=== PATIENT | male | born 1965 | race Caucasian/White ===

== ENCOUNTER 2025-05-09 09:37 | Inpatient (IN) | payer OTHER ==
[~2025-05-09] VITALS: Ht 180.3 cm; Wt 96.6 kg
[2025-05-09] VITALS (16 sets, daily range): BP systolic 155–185; BP diastolic 81–126
[2025-05-09] MEDS ORDERED: Labetalol HCL 5 MG/ML 4ML Injection (Single Dose) IV ONE (10:25)
[2025-05-09] MEDS ORDERED: TAMS.4ER PO (10:44)
[2025-05-09 11:20] LABS: BASOPHILS ABSOLUTE AUTO 0.03 K/mm3 (0.00-0.23); BASOPHILS PERCENT AUTO 0 % (0-2); EOSINOPHILS ABSOLUTE AUTO 0.05 K/mm3 (0.00-0.68); EOSINOPHILS PERCENT AUTO 0 % (0-6); Hematocrit 36.5 % (37.0-53.0); Hemoglobin 12.1 g/dL (13.5-17.5); IMMATURE GRAN ABSOLUTE AUTO 0.05 K/mm3 (0.00-0.10); IMMATURE GRAN PERCENT AUTO 0 % (0-1); LYMPHOCYTES ABSOLUTE AUTO 0.65 K/mm3 (0.84-5.20); LYMPHOCYTES PERCENT AUTO 5 % (21-46); MONOCYTES ABSOLUTE AUTO 0.52 K/mm3 (0.16-1.47); MONOCYTES PERCENT AUTO 4 % (4-13); Mean Corpuscular HGB Conc 33.2 g/dL (31.5-36.5); Mean Corpuscular Volume 88 fL (80-100); NEUTROPHILS ABSOLUTE AUTO 11.67 K/mm3 (1.96-9.15); NEUTROPHILS PERCENT AUTO 90 % (41-73); NRBC ABSOLUTE 0.00 K/mm3 (0.00-0.02); NRBC Auto 0.0 /100 WBC (0.0-0.2); Platelet Count 212 K/mm3 (150-400); RDW Coefficient Variation 14.6 % (11.7-14.2); RDW Standard Deviation 46.1 fL (35.1-46.3)
[2025-05-09 12:08] LABS: Alanine Aminotransfer (ALT/SGP 56.0 U/L (12-78); Albumin, Blood 3.4 g/dL (3.4-5.0); Albumin/Globulin Ratio 0.9 (0.8-1.8); Anion Gap 11.0 mmol/L (3-11); Aspartate Aminotrans (AST/SGOT 39.0 U/L (12-37); Bilirubin, Total 0.8 mg/dL (0.1-1.0); Blood Urea Nitrogen 62.0 mg/dL (8-24); CO2, Blood 24.0 mmol/L (21-32); Calcium, Blood 8.9 mg/dL (8.5-10.1); Chloride, Blood 106.0 mmol/L (98-108); Creatinine, Blood 6.04 mg/dL (0.60-1.20); Globulin, Blood 3.8 g/dL (2.2-4.0); Glucose, Blood 88.0 mg/dL (70-99); Magnesium, Blood 2.6 mg/dL (1.6-2.4); Potassium, Blood 4.2 mmol/L (3.5-5.5); Sodium, Blood 137.0 mmol/L (136-145); Total Protein, Blood 7.2 g/dL (6.4-8.2)
[2025-05-09 12:26] LABS: pH Blood Venous 7.35 (7.34-7.37)
[2025-05-09] MEDS ORDERED: NICARDIPINE HCL PO ONE ×2 (12:30→12:55)
[2025-05-09] MEDS ORDERED: FLU VACC TS2025-26(6MOS UP)/PF 45 MCG/0.5 ML SYRINGE IM ONE (12:50)
[2025-05-09] MEDS ORDERED: Ondansetron HCl 2 MG / ML 2ML Vial IV PRN (12:50)
[2025-05-09 13:27] LABS: Source, Urine Clean Catch
[2025-05-09 13:31] LABS: Bilirubin, Urine Neg (Neg); Color, Urine Yellow (P-Yellow); Glucose Qualitative, Urine 1+ (Neg); Ketones, Urine Neg (Neg); Leukocyte Esterase, Urine Neg (Neg); Protein, Urine 4+ (Neg); Specific Gravity, Urine 1.015 (1.003-1.022); Urobilinogen, Urine NORM (Normal)
[2025-05-09 13:58] LABS: White Blood Cells, Urine 0-2 /hpf (0-5)
[2025-05-09] MEDS ORDERED: Heparin Sodium,Porcine 5,000 UNIT/0.5 ML SDV SC SCH (14:00)
[2025-05-09] MEDS ORDERED: NiCARdipine HCL 50 MG in NS 250 ML IV SCH (14:05)
[2025-05-09 14:18] LABS: U Amphetamine Screen DETECTED; U Barbiturate Screen Not Detected; U Benzodiazapine Screen Not Detected; U Buprenorphine Screen Not Detected; U Cannabinoids Screen DETECTED; U Cocaine Screen Not Detected; U Methadone Screen Not Detected; U Methamphetamine Screen DETECTED; U Opiates Screen Not Detected; U Oxycodone Screen Not Detected; U Phencyclidine Screen Not Detected
[2025-05-09] MEDS ORDERED: CefTRIAXone Sodium 1,000 MG in NS 100 ML IV SCH (16:00)
[2025-05-09 16:31] LABS: Albumin, Blood 3.3 g/dL (3.4-5.0); Anion Gap 10 mmol/L (3-11); Blood Urea Nitrogen 67 mg/dL (8-24); CO2, Blood 24 mmol/L (21-32); Calcium, Blood 8.7 mg/dL (8.5-10.1); Chloride, Blood 105 mmol/L (98-108); Creatinine, Blood 6.37 mg/dL (0.60-1.20); Glucose, Blood 105 mg/dL (70-99); Phosphorus, Blood 5.1 mg/dL (2.5-4.9); Potassium, Blood 4.1 mmol/L (3.5-5.5); Sodium, Blood 135 mmol/L (136-145)
[2025-05-09 16:47] LABS: EOS, Urine 0.0 % (0.0-1.0); Eosinophils-Raw #,Urine 0
--- NOTE | 2025-05-09 18:22 | NUR ---
SUMMARY PT ADMITTED TO ICU 2 AT 1615 FROM ER. PT IS A/O X4. NOT ON CPAP ON ARRIVAL BUT HAD BEEN WEARING IT IN ER. RT NOTIFIED AND BROUGHT CPAP IN ROOM. PT IS APNEIC WHEN SLEEPING. ON NICARDIPINE GTT ON ARRIVAL SEE FLOWSHEET. LASIX GIVEN PER DR. BRASWELL, DR. GHOSH CONSULTED BY DR. BRASWELL. NO SIGN OF DISTRESS.
--- NOTE | 2025-05-09 19:34 | NUR ---
ASSUMPTION OF CARE: ASSUMED CARE AT START OF SHIFT (1899). REPORT RECEIVED FROM DAY SHIFT RN. PT IS DOING WELL AND RESTING IN BED. PT IS ALERT AND FOLOWING COMMANDS. PT DENIES ANY PAIN, CP, OR SOB AT THIS TIME. ON NICARDIPINE GTT PER EMR ORDERS. LUNG SOUNDS ARE COARSE AND WHEEZY THROUGHOUT. PT IS ON RA WITH SPO2 >94% AND USES CPAP WHEN SLEEPING. SINUS RYTHM WITH SBP: 140-160'S MAP >65 HR: 80'S. IV: PERIPHERAL IN RAC AND R FOREARM. PT IS ABLE TO USE BEDSIDE URINAL. LINES AND CORDS PLACED OUT OF REACH. CALL LIGHT PLACED WITHIN REACH.
[2025-05-09] MEDS ORDERED: Lactobacil 2-S.Thermo-Bifido 1 1 Cap PO SCH (21:00)
[2025-05-10] VITALS (52 sets, daily range): BP systolic 99–195; BP diastolic 52–112
[2025-05-10 03:35] LABS: BASOPHILS ABSOLUTE AUTO 0.04 K/mm3 (0.00-0.23); BASOPHILS PERCENT AUTO 0 % (0-2); EOSINOPHILS ABSOLUTE AUTO 0.15 K/mm3 (0.00-0.68); EOSINOPHILS PERCENT AUTO 2 % (0-6); Hematocrit 33.2 % (37.0-53.0); Hemoglobin 11.1 g/dL (13.5-17.5); IMMATURE GRAN ABSOLUTE AUTO 0.04 K/mm3 (0.00-0.10); IMMATURE GRAN PERCENT AUTO 0 % (0-1); LYMPHOCYTES ABSOLUTE AUTO 0.67 K/mm3 (0.84-5.20); LYMPHOCYTES PERCENT AUTO 7 % (21-46); MONOCYTES ABSOLUTE AUTO 0.61 K/mm3 (0.16-1.47); MONOCYTES PERCENT AUTO 7 % (4-13); Mean Corpuscular HGB Conc 33.4 g/dL (31.5-36.5); Mean Corpuscular Volume 88 fL (80-100); NEUTROPHILS ABSOLUTE AUTO 7.82 K/mm3 (1.96-9.15); NEUTROPHILS PERCENT AUTO 84 % (41-73); NRBC ABSOLUTE 0.00 K/mm3 (0.00-0.02); NRBC Auto 0.0 /100 WBC (0.0-0.2); Platelet Count 190 K/mm3 (150-400); RDW Coefficient Variation 14.5 % (11.7-14.2); RDW Standard Deviation 46.1 fL (35.1-46.3)
[2025-05-10 04:05] LABS: Alanine Aminotransfer (ALT/SGP 49.0 U/L (12-78); Albumin, Blood 3.1 g/dL (3.4-5.0); Albumin/Globulin Ratio 0.9 (0.8-1.8); Anion Gap 12.0 mmol/L (3-11); Aspartate Aminotrans (AST/SGOT 29.0 U/L (12-37); Bilirubin, Total 0.9 mg/dL (0.1-1.0); Blood Urea Nitrogen 76.0 mg/dL (8-24); CO2, Blood 23.0 mmol/L (21-32); Calcium, Blood 8.5 mg/dL (8.5-10.1); Chloride, Blood 105.0 mmol/L (98-108); Creatinine, Blood 6.57 mg/dL (0.60-1.20); Globulin, Blood 3.6 g/dL (2.2-4.0); Glucose, Blood 98.0 mg/dL (70-99); Phosphorus, Blood 5.1 mg/dL (2.5-4.9); Potassium, Blood 3.8 mmol/L (3.5-5.5); Sodium, Blood 136.0 mmol/L (136-145); Total Protein, Blood 6.7 g/dL (6.4-8.2)
--- NOTE | 2025-05-10 05:50 | NUR ---
SHIFT SUMMARY: PT IS DOING WELL AND RESTING IN BED. NO ACUTE CHANGES THROUGHOUT THE SHIFT. PT WAS PLACED ON BIPAP WHILE SLEEPING. PT WAS ABLE TO SLEEP MOST OF THE NIGHT. VITAL SIGNS REMAIN STABLE. PT REMAINS ON NICARDIPINE GTT PER EMR ORDERS. LINES AND CORDS PLACED OUT OF REACH. CALL LIGHT PLACED WITHIN REACH.
[2025-05-10] MEDS ORDERED: Polyethylene Glycol 3350 17 gm PO SCH (09:00)
[2025-05-10] MEDS ORDERED: NIFEdipine 60 MG TabCR PO SCH (09:00)
[2025-05-10] MEDS ORDERED: Magnesium Hydroxide Conc 10 ML UDC PO PRN (11:10)
--- NOTE | 2025-05-10 11:24 | NUR ---
PT C/O BURNING PAIN IN LOWER ABD. GAVE ZOFRAN WITHOUT RELIEF. CALLED DR. BRASWELL TO NOTIFY. BLADDER SCAN 70ML. NO CHANGES SEEN ON MONITOR. DENIES CP OR SOB. STOOD PT AT BEDSIDE AND PT STATES IT SEEMS TO BE SUBSIDING A LITTLE BIT. ATIVAN GIVEN PER PT REQUEST AND HE WANTS TO TRY TO REST. PT STATES HIS BOWELS HAVE BEEN BACKED UP FOR AWHILE. BT'S PRESENT. MIRALAX AND SENNA GIVEN THIS AM.
--- NOTE | 2025-05-10 15:45 | NUR ---
PT MORE ANXIOUS THIS AFTERNOON AND WOKE SLIGHTLY CONFUSED. OOB TO CHAIR WITH WEAK GAIT. REORIENTS AFTER A FEW MINUTES. LEGS ARE MORE EDEMATOUS WELL HANDS THIS AFTERNOON. PT SOB AND INCREASED WOB. PT STATES HE IS STILL HAVING BURNING PAIN IN LOWER ABD. LS COARSE. HAS NOT BEEN VOIDING TODAY. DID EKG THAT HAS CHANGED SINCE ADMIT EKG. DENIES CP. CALLED DR. BRASWELL TO REPORT SYMPTOMS AND CAME TO THE BEDSIDE. LABS DRAWN. DR. BRASWELL SPOKE WITH DR. GHOSH, NO NEW ORDERS. PT BACK TO BED AND ON BIPAP. WOB IMPROVED SINCE BIPAP.
[2025-05-10 16:15] LABS: Anion Gap 18.0 mmol/L (3-11); Blood Urea Nitrogen 79.0 mg/dL (8-24); CO2, Blood 20.0 mmol/L (21-32); Calcium, Blood 8.4 mg/dL (8.5-10.1); Chloride, Blood 101.0 mmol/L (98-108); Creatinine, Blood 7.59 mg/dL (0.60-1.20); Glucose, Blood 174.0 mg/dL (70-99); Potassium, Blood 3.6 mmol/L (3.5-5.5); Sodium, Blood 135.0 mmol/L (136-145)
--- NOTE | 2025-05-10 16:44 | NUR ---
REPORTED CREATININE RESULTS TO DR. GHOSH, NO NEW ORDERS.
--- NOTE | 2025-05-10 17:11 | NUR ---
DR. GHOSH AT BEDSIDE PLAN FOR DIALYSIS CATH TOMORROW.
[2025-05-10 17:29] LABS: pH Blood Venous 7.39 (7.34-7.37)
[2025-05-10 17:55] LABS: Prothrombin Time Results 12.1 Sec (9.7-11.5)
--- NOTE | 2025-05-10 18:30 | NUR ---
PT RESTING ON BIPAP NOW, NO SIGN OF DISTRESS AT THE MOMENT. CALLED DR. GHOSH ABOUT LACTIC ACID, NEW ORDERS FOR VANCO DOSE.
[2025-05-11] VITALS (70 sets, daily range): BP systolic 128–220; BP diastolic 62–208
[2025-05-11] MEDS ORDERED: HydrALAZINE HCl 20 MG / ML 1ML Vial IV PRN (00:35)
[2025-05-11] MEDS ORDERED: HydrALAZINE HCl 20 MG / ML 1ML Vial IV ONE (02:00)
[2025-05-11] MEDS ORDERED: Isosorbide Mononitrate 30 MG TABCR PO ONE (02:05)
[2025-05-11] MEDS ORDERED: NiCARdipine HCL 50 MG in NS 250 ML IV SCH (03:45)
[2025-05-11 04:10] LABS: BASOPHILS ABSOLUTE AUTO 0.04 K/mm3 (0.00-0.23); BASOPHILS PERCENT AUTO 1 % (0-2); EOSINOPHILS ABSOLUTE AUTO 0.12 K/mm3 (0.00-0.68); EOSINOPHILS PERCENT AUTO 2 % (0-6); Hematocrit 30.8 % (37.0-53.0); Hemoglobin 9.8 g/dL (13.5-17.5); IMMATURE GRAN ABSOLUTE AUTO 0.03 K/mm3 (0.00-0.10); IMMATURE GRAN PERCENT AUTO 0 % (0-1); LYMPHOCYTES ABSOLUTE AUTO 0.72 K/mm3 (0.84-5.20); LYMPHOCYTES PERCENT AUTO 9 % (21-46); MONOCYTES ABSOLUTE AUTO 0.44 K/mm3 (0.16-1.47); MONOCYTES PERCENT AUTO 6 % (4-13); Mean Corpuscular HGB Conc 31.8 g/dL (31.5-36.5); Mean Corpuscular Volume 90 fL (80-100); NEUTROPHILS ABSOLUTE AUTO 6.47 K/mm3 (1.96-9.15); NEUTROPHILS PERCENT AUTO 83 % (41-73); NRBC ABSOLUTE 0.00 K/mm3 (0.00-0.02); NRBC Auto 0.0 /100 WBC (0.0-0.2); Platelet Count 170 K/mm3 (150-400); RDW Coefficient Variation 14.6 % (11.7-14.2); RDW Standard Deviation 47.8 fL (35.1-46.3)
[2025-05-11 04:25] LABS: Magnesium, Blood 2.4 mg/dL (1.6-2.4)
[2025-05-11 04:26] LABS: Albumin, Blood 2.8 g/dL (3.4-5.0); Anion Gap 13 mmol/L (3-11); Blood Urea Nitrogen 82 mg/dL (8-24); CO2, Blood 23 mmol/L (21-32); Calcium, Blood 8.3 mg/dL (8.5-10.1); Chloride, Blood 103 mmol/L (98-108); Creatinine, Blood 7.89 mg/dL (0.60-1.20); Glucose, Blood 120 mg/dL (70-99); Phosphorus, Blood 6.6 mg/dL (2.5-4.9); Potassium, Blood 3.6 mmol/L (3.5-5.5); Sodium, Blood 135 mmol/L (136-145)
--- NOTE | 2025-05-11 06:06 | NUR ---
SHIFT SUMMARY: PT IS DOING WELL AND RESTING IN BED. PT REMIANED ON BIPAP THROUGHOUT THE NIGHT AND SPO2 >95%. PT BECAME HYPERTENSIVE THE NIGHT PROGRESSED. DR. CRUZ WAS NOTIFIED, PT WAS GIVEN HYDRALAZINE PER EMR ORDERS BUT THE SBP REMAINED >180. NICARDIPINE GTT WAS STARTED PER EMR ORDERS. IV: PERIPHERAL LAC AND R FORERARM. PT IS ABLE TO STAND AND USE BEDSIDE URINAL. LINES AND CORDS PLACED OUT OF REACH. CALL LIGHT PLACED WITHIN REACH AND PT WILL PRESS CALL BUTTON WHEN THEY NEED ASSISTANCE.
--- NOTE | 2025-05-11 08:30 | NUR ---
ASSUMPTION OF CARE ASSUMED CARE OF PT AT START OF SHIFT, APPROX 0700. PT RESTING IN BED WITH NICARDIPENE INFUSING IN LAC PER MAR -SEE FLOWSHEEET. PT ALERT AND ABLE TO FOLLOW DIRECTIONS. VSS AT THIS TIME, PT ON BIPAP 16/450 21% FI02, SPO2 >90% LUNGS COARSE THROUGHOUT WITH NONPRODUCTIVE, WET COUGH. DENIES CP AND SOB. PT REQUESTED TO REMOVE BIPAP AT START OF SHIFT AND SATS REMAIN >90% ON RA. BP STABLE WITH SYSTOLIC IN THE 130S-140S. PLAN FOR PLACEMENT OF TRIALYSIS CATH THIS AM WITH DR. ARROYO. PT DENIES UNMET NEEDS AT THIS TIME, CALL LIGHT WITHIN REACH.
[2025-05-11] MEDS ORDERED: LORazepam 2 MG/ML 1ML Injection ONE (09:34)
[2025-05-11] MEDS ORDERED: FentaNYL Citrate 50 MCG/ML 2 ML Injection ONE (09:34)
[2025-05-11] MEDS ORDERED: FentaNYL Citrate 50 MCG/ML 2 ML Injection IV ONE (09:35)
[2025-05-11] MEDS ORDERED: LORazepam 2 MG/ML 1ML Injection IV SCH (09:40)
--- NOTE | 2025-05-11 09:46 | NUR ---
IN WITH PATIENT, PROCEDURE FOR TRIALASYS CATHETER PLACEMENT. EDUCATION AND CONSENT DONE. IV FENTANYL AND LORAZEPAM PER ORDERS OF . PT CHATTING WITH .
--- NOTE | 2025-05-11 18:26 | NUR ---
SHIFT SUMMARY PT REMAINS ALERT AND FOLLOWING DIRECTIONS. HR SINUS WITH RATE IN 80S, BP STABLE WITH SYSTOLIC IN THE 160S-170S. NICARDIPENE DRIP REMAINS ON STANDBY AND INITIATED PO HYDRALAZINE PER SEP -SEE FLOWSHEET. PT WAS OFF BIPAP FOR MOST OF THIS SHIFT, WAS PLACED BACK ON FOLLOWING TRIALYSIS CATH PLACEMENT FOR A SHORT PERIOD AND IS CURRENTLY ON RA WITH SATS >90%. PT UNDERWENT DIALYSIS AT BEDSIDE WITH 2L OFF FOLLOWING CATH PLACEMENT. DENIES CP OR SOB. NO BM THIS SHIFT, PROVIDED LAXATIVES PER SEP AND ABLE TO GET UP TO USE TOILET IN ROOM WITH STANDBY ASSIST. DENIES UNMENT NEEDS AT THIS TIME, CALL LIGHT WITHIN REACH.
--- NOTE | 2025-05-11 18:45 | NUR ---
PT REQUEST FOR TYLENOL PT ENDORSES HEADACHE AND SORENESS IN NECK WHERE TRIALYSIS CATH WAS PLACED, REQUESTING TYLENOL. ATTEMPTED CALL TO DR. BRASWELL AND RECEIVED VOICEMAIL, ATTEMPTED CALL TO DR. ALEXANDER ON WELDING SYSTEMS AND EQUIPMENT REPAIRER. WILL LET ONCOMING NURSE KNOW OF THE REQUEST WELL.
--- NOTE | 2025-05-11 21:09 | NUR ---
ASSUMPTION OF CARE: ASSUMED CARE AT START OF SHIFT (1899). REPORT RECEIVED FROM DAY SHIFT RN. PT IS DOING WELL AND RESTING IN BED. PT IS ALERT AND FOLLOWING COMMANDS. PT STATES THAT THEY ARE HAVE 6/10 R SIDE NECK PAIN FROM TRIALYSIS CATHETER INSERTION SITE, BUT NO SP OR SOB AT THIS TIME. NICARDIPINE GTT HAS BEEN ON STANDBY SINCE AFTERNOON. LUNG SOUNDS ARE EQUAL BUT COARSE THROUGHOUT, ON RA WITH SPO2 >95%. SINUS RYTHM WITH SBP: 160'S MAP >65 HR: 90'S. IV: PERIPHERAL IV IN L AND R FOREARM, TRIALYSIS CATH IN RIJ. PT IS ABLE TO STAND AND USE BEDSIDE URINAL VIA 1-PERSON ASSIST. LINES AND CORDS PLACED OUT OF REACH. CALL LIGHT PLACED WITHIN REACH.
[2025-05-12] VITALS (95 sets, daily range): BP systolic 133–216; BP diastolic 70–130
[2025-05-12 03:43] LABS: BASOPHILS ABSOLUTE AUTO 0.03 K/mm3 (0.00-0.23); BASOPHILS PERCENT AUTO 0 % (0-2); EOSINOPHILS ABSOLUTE AUTO 0.17 K/mm3 (0.00-0.68); EOSINOPHILS PERCENT AUTO 2 % (0-6); Hematocrit 31.6 % (37.0-53.0); Hemoglobin 10.0 g/dL (13.5-17.5); IMMATURE GRAN ABSOLUTE AUTO 0.06 K/mm3 (0.00-0.10); IMMATURE GRAN PERCENT AUTO 1 % (0-1); LYMPHOCYTES ABSOLUTE AUTO 0.72 K/mm3 (0.84-5.20); LYMPHOCYTES PERCENT AUTO 10 % (21-46); MONOCYTES ABSOLUTE AUTO 0.53 K/mm3 (0.16-1.47); MONOCYTES PERCENT AUTO 7 % (4-13); Mean Corpuscular HGB Conc 31.6 g/dL (31.5-36.5); Mean Corpuscular Volume 91 fL (80-100); NEUTROPHILS ABSOLUTE AUTO 5.98 K/mm3 (1.96-9.15); NEUTROPHILS PERCENT AUTO 80 % (41-73); NRBC ABSOLUTE 0.00 K/mm3 (0.00-0.02); NRBC Auto 0.0 /100 WBC (0.0-0.2); Platelet Count 169 K/mm3 (150-400); RDW Coefficient Variation 14.8 % (11.7-14.2); RDW Standard Deviation 48.1 fL (35.1-46.3)
[2025-05-12 04:00] LABS: Albumin, Blood 2.9 g/dL (3.4-5.0); Anion Gap 11 mmol/L (3-11); Blood Urea Nitrogen 63 mg/dL (8-24); CO2, Blood 28 mmol/L (21-32); Calcium, Blood 8.9 mg/dL (8.5-10.1); Chloride, Blood 100 mmol/L (98-108); Creatinine, Blood 6.96 mg/dL (0.60-1.20); Glucose, Blood 90 mg/dL (70-99); Magnesium, Blood 2.1 mg/dL (1.6-2.4); Phosphorus, Blood 4.2 mg/dL (2.5-4.9); Potassium, Blood 3.9 mmol/L (3.5-5.5); Sodium, Blood 135 mmol/L (136-145); Total Iron Binding Capacity 297 ug/dL (250-450)
--- NOTE | 2025-05-12 06:04 | NUR ---
SHIFT SUMMARY: PT IS DOING WELL AND RESTING IN BED. PT WAS ABLE TO SLEEP A COUPLE HOURS DUING THE NIGHT. PT WAS PUT ON BIPAP: 16/450/21% WHILE SLEEPING. SPO2 >95%. PT BECAME MORE HYPERTENSIVE THE NIGHT PROGRESSED. SBP: 160-200'S. PT WAS GIVEN MEDICATION AND NICARDIPINE GTT WAS RESTARTED PER EMR ORDES. IV: PERIPHERAL IV IN LAC AND R FOREARM, TRIALYSIS CATHETER IN RIJ. PT IS ABLE TO STAND AND USE TOILET VIA 1-PERSON ASSIST. LINES, CORDS, AND TUBES PLACED OUT OF REACH. CALL LIGHT PLACE WITHIN REACH. PT WILL PRESS CALL BUTTON WHEN THE NEED ASSISTANCE.
--- NOTE | 2025-05-12 11:24 | NUR ---
AM NOTE PT ASLEEP IN BED AT TIME OF BEDSIDE REPORT W/ NOC RN. PT A/OX4, ABLE TO MOVE ALL EXTREMITIES SPONTANEOUSLY, AND MAKE NEEDS KNOWN. NSR ON MONITOR, CAP REFILL<3 SEC, +2 EDEMA NOTED ON BUE/BLE. SBPS 180'S DESPITE ORAL MEDS PER SEP OVERNIGHT, NICARDIPINE ON 10MG/HR AT START IF SHIFT. DR. ROE ADVISED TO KEEP SBP'S <180 W/ NICARDIPINE GTT. NICARDIPINE TITRATED DOWN TO OFF W/ ORAL MEDS PER SEP, SBP MAINTAINED >120 FOR DIALYSIS REQUIREMENTS. PT ON RA WHILE AWAKE, SATURATING >95%, BREATHS EVEN/UNLABORED, LUNGS SOUNDS DIM T/O CRISTINA. ABD FIRM AND NONTENDER TO PALPATION, BOWEL SOUNDS ACTIVE. PT CONTINENT OF BOWEL/BLADDER. SKIN INTACT W/O BREAKDOWN. PT ABLE TO AMBULATE W/ STANDBY ASSIST FOR LINES/CORDS. PT HAD EXTENSIVE CONVERSATION W/ DR. BRASWELL REGARDING PROGNOSIS AND TREATMENT MOVING FORWARD. PT EXPRESSED CONCERN REAGRDING IF CARE PLAN WAS APPROPRIATE, BUT IS AGREEABLE TO PLAN. ACCESS: TOÑITO TRIALYSIS, LFA PIV, RAC PIV
[2025-05-12] MEDS ORDERED: NiCARdipine HCL 25 MG/10 ML (2.5MG/ML) IV PRN (12:15)
[2025-05-12] MEDS ORDERED: Sod Ferric Gluc Complx/Sucrose 125 MG in NS 100 ML IV SCH (18:00)
--- NOTE | 2025-05-12 18:11 | NUR ---
PM NOTE PT ASSESSMENT UNCHANGED FROM AM NOTE. PT HAD 3 HOURS OF HD COMPLETED W/ 4 LITERS OF FLUID REMOVED. BP'S CONTROLLED W/ SCHEDULED AND PRN ORAL MEDS. NICARDIPINE ON STANDBY IN ROOM. PT AGREEABLE TO TREATMENT PLAN OF DIALYIS, BUT FEELS OVERWHELMED. HE IS COMFORTED W/ FURTHER CONVERSATION AND PLANNING. VITAL SIGNS STABLE AND BEDSIDE REPORT PERFORMED W/ NOC RN.
--- NOTE | 2025-05-12 19:32 | NUR ---
ASSUMPTION OF CARE: ASSUMED CARE AT START OF SHIFT (1899). REPORT RECEVIED FROM DAY SHIFT RN. PT IS DOING WELL, SITTING UP IN CHAIR AND VISITING WITH FAMILY. PT IS ALERT AND FOLLOWING COMMANDS. PT DENIES ANY PAIN, CP, OR SOB AT THIS TIME. LUNG SOUNDS EQUAL WITH EXPIRATORY WHEEZES THROUGHOUT AND DIMINISHED IN BASES, ON RA WITH SPO2 >95%. PT USES BIPAP AT NIGHT WHEN SLEEPING. PT IS HYPERTENSIVE WITH SBP >160'S MAP >65, NICARDIPINE GTT PER EMR ORDERS, HR: 70'S. IV: PERIPHERAL LAC AND R FOREARM, TRIALYSIS CATHETER IN RIJ. PT IS ABLE TO STAND AND USE TOILET VIA 1-PERSON ASSIST. LINES AND CORDS PLACED OUT OF REACH. CALL LIGHT PLACED WITHIN REACH.
[2025-05-13] VITALS (52 sets, daily range): BP systolic 111–187; BP diastolic 75–118
[2025-05-13] MEDS ORDERED: LORazepam 2 MG/ML 1ML Injection IV ONE (01:20)
[2025-05-13 03:33] LABS: BASOPHILS ABSOLUTE AUTO 0.03 K/mm3 (0.00-0.23); BASOPHILS PERCENT AUTO 1 % (0-2); EOSINOPHILS ABSOLUTE AUTO 0.14 K/mm3 (0.00-0.68); EOSINOPHILS PERCENT AUTO 2 % (0-6); Hematocrit 27.9 % (37.0-53.0); Hemoglobin 9.1 g/dL (13.5-17.5); IMMATURE GRAN ABSOLUTE AUTO 0.02 K/mm3 (0.00-0.10); IMMATURE GRAN PERCENT AUTO 0 % (0-1); LYMPHOCYTES ABSOLUTE AUTO 0.59 K/mm3 (0.84-5.20); LYMPHOCYTES PERCENT AUTO 10 % (21-46); MONOCYTES ABSOLUTE AUTO 0.56 K/mm3 (0.16-1.47); MONOCYTES PERCENT AUTO 9 % (4-13); Mean Corpuscular HGB Conc 32.6 g/dL (31.5-36.5); Mean Corpuscular Volume 89 fL (80-100); NEUTROPHILS ABSOLUTE AUTO 4.82 K/mm3 (1.96-9.15); NEUTROPHILS PERCENT AUTO 78 % (41-73); NRBC ABSOLUTE 0.00 K/mm3 (0.00-0.02); NRBC Auto 0.0 /100 WBC (0.0-0.2); Platelet Count 144 K/mm3 (150-400); RDW Coefficient Variation 15.0 % (11.7-14.2); RDW Standard Deviation 47.3 fL (35.1-46.3)
[2025-05-13 04:02] LABS: Albumin, Blood 2.6 g/dL (3.4-5.0); Anion Gap 9 mmol/L (3-11); Blood Urea Nitrogen 53 mg/dL (8-24); CO2, Blood 31 mmol/L (21-32); Calcium, Blood 8.1 mg/dL (8.5-10.1); Chloride, Blood 101 mmol/L (98-108); Creatinine, Blood 5.81 mg/dL (0.60-1.20); Glucose, Blood 86 mg/dL (70-99); Magnesium, Blood 2.2 mg/dL (1.6-2.4); Phosphorus, Blood 3.7 mg/dL (2.5-4.9); Potassium, Blood 3.6 mmol/L (3.5-5.5); Sodium, Blood 137 mmol/L (136-145)
--- NOTE | 2025-05-13 06:10 | NUR ---
SHIFT SUMMARY: PT IS DOING WELL AND RESTING IN BED. NO ACUTE CHANGES THROUGHOUT THE SHIFT. VITAL SIGNS REMAINED STABLE DURING THE NIGHT. PT WAS ABLE TO SLEEP MOST OF THE NIGHT AND WAS PLACED ON BIPAP WHILE SLEEPING. PT BECAME ANXIOUS DURING THE NIGHT, PT WOKE UP DISORIENTED AND CONFUSED, THOUGHT THEY WERE STILL DREAMING, PT WAS REORIENTED TO THE UNIT BUT THEY WERE STILL VERY ANXIOUS AND STATED THAT THEY WERE SCARED TO SLEEP. DR. CRUZ WAS CALLL AND ATIVAN WAS GIVEN PER EMR ORDERS. LINES AND CORDS PLACED OUT OF REACH. CALL LIGHT PLACED WITHIN REACH.
--- NOTE | 2025-05-13 10:56 | NUR ---
AM NOTE PT AWAKE IN BED AT TIME OF BEDSIDE REPORT. PT A/OX4, ABLE TO MOVE ALL EXTREMITIES SPONTANEOUSLY, AND CALLS APPROPRIATELY. PT DENIES NUMBNESS/TINGLING/PAIN. SATURATING >95% ON RA WHILE AWAKE, BREATH SOUNDS CLEAR TO UPPER LOBES, FINE CRACKLES/DIM TO LOWER LOBES. BREATHS EVEN/UNLABORED, DENIES SOB/CP. NSR ON MONITOR, SBPS' 140-150'S, +2 EDEMA NOTED ON BLE, CAP REFILL<3 SEC. ABD DISTENDED/FIRM/NONTENDER, BOWEL SOUNDS ACTIVE IN ALL QUADRANTS. SOFT/FORMED BM'S OVERNIGHT PER PATIENT. PT CONTIENNT OF BOWEL/BLADDER. SKIN INTACT AND W/O BREAKDOWN. DIALYSIS THIS AM AT 0830 FOR 3 HOURS, PT TRANSPORTED TO DIALYSIS ROOM VIA BED, HAND OFF W/ ROLA RN IN ROOM. PT HAD MULTIPLE DISCUSSION REGARDING CARE PLAN W/ HOSPITALIST TEAM AND IS AGREEABLE W/ PLAN. ACCESS: RFA PIV, LAC PIV, RIJ TRIALYSIS
[2025-05-13 11:48] LABS: MYELOPEROXIDASE (MPO) AB,IGG 0 AU/mL (0-19); SERINE PROTEINASE 3 PR3 AB,IGG 2 AU/mL (0-19)
[2025-05-13 12:59] LABS: COMPLEMENT COMPONENT 3 106 mg/dL (90-180); COMPLEMENT COMPONENT 4 26 mg/dL (10-40)
[2025-05-13 15:51] LABS: HIV 1,2 COMBO ANTIGEN/ANTIBODY Negative (Negative)
[2025-05-13 17:52] LABS: HCV QNT BY NAAT (IU/ML) Not Detected; HCV QNT BY NAAT (LOG IU/ML) Not Detected; HCV QNT BY NAAT INTERP Not Detected (Not Detected)
--- NOTE | 2025-05-13 18:08 | NUR ---
PM NOTE HEAD TO TOE ASSESSMENT LARGELY UNCHANGED FROM AM NOTE. PT REMAINED A/OX4 T/O SHIFT, LUNG SOUNDS IMPROVED TO CLEAR/DIM AT BASES, EDEMA UNCHANGED IN BLE. 4 LITERS TAKEN OFF DURING DIALYSIS WHICH WAS PERFORMED FROM [id number]. PT TRANSPORTED TO DIALYSIS VIA BED W/O ISSUES. PT MOOD IMPROVED TODAY, IS ABLE TO HAVE MORE CONSTRUCTIVE CONVERSATIONS REAGRDING OUTPATIENT FOLLOW-UP AND CARE. BEDSIDE REPORT PERFORMED W/ NOC RN. ACCESS: LOLLY PIV, SUHA PIV, RIJ TRIALYSIS
--- NOTE | 2025-05-13 20:24 | NUR ---
ASSUMED CARE PATIENT IS ALERT AND ORIENTED X4, INDEPENDENT IN ROOM, UP IN RECLINER CURRENTLY. SP02 96% ON RA. HR SR 70s, BP HYPERTENSIVE, MEDICATED WITH SCHEDULED PO MEDICATION. DENIES CP/PRESSURE. USES URINAL. CALL LIGHT IN REACH
--- NOTE | 2025-05-13 20:56 | NUR ---
PATIENT SLEEPING IN RECLINER TONIGHT, PLACED ON BIPAP AT 2044
[2025-05-13 21:06] LABS: QUANTIFERON MITOGEN MINUS NIL 9.95 IU/mL; QUANTIFERON NIL 0.05 IU/mL; QUANTIFERON PLUS TB1 MINUS NIL 0.00 IU/mL (<=0.34); QUANTIFERON PLUS TB2 MINUS NIL 0.00 IU/mL (<=0.34)
[2025-05-14] VITALS (9 sets, daily range): BP systolic 148–181; BP diastolic 95–125
[2025-05-14 04:08] LABS: BASOPHILS ABSOLUTE AUTO 0.04 K/mm3 (0.00-0.23); BASOPHILS PERCENT AUTO 1 % (0-2); EOSINOPHILS ABSOLUTE AUTO 0.23 K/mm3 (0.00-0.68); EOSINOPHILS PERCENT AUTO 3 % (0-6); Hematocrit 30.4 % (37.0-53.0); Hemoglobin 9.9 g/dL (13.5-17.5); IMMATURE GRAN ABSOLUTE AUTO 0.02 K/mm3 (0.00-0.10); IMMATURE GRAN PERCENT AUTO 0 % (0-1); LYMPHOCYTES ABSOLUTE AUTO 0.80 K/mm3 (0.84-5.20); LYMPHOCYTES PERCENT AUTO 12 % (21-46); MONOCYTES ABSOLUTE AUTO 0.73 K/mm3 (0.16-1.47); MONOCYTES PERCENT AUTO 11 % (4-13); Mean Corpuscular HGB Conc 32.6 g/dL (31.5-36.5); Mean Corpuscular Volume 89 fL (80-100); NEUTROPHILS ABSOLUTE AUTO 5.11 K/mm3 (1.96-9.15); NEUTROPHILS PERCENT AUTO 74 % (41-73); NRBC ABSOLUTE 0.00 K/mm3 (0.00-0.02); NRBC Auto 0.0 /100 WBC (0.0-0.2); Platelet Count 146 K/mm3 (150-400); RDW Coefficient Variation 14.6 % (11.7-14.2); RDW Standard Deviation 46.9 fL (35.1-46.3)
[2025-05-14 05:14] LABS: Albumin, Blood 2.9 g/dL (3.4-5.0); Anion Gap 10 mmol/L (3-11); Blood Urea Nitrogen 42 mg/dL (8-24); CO2, Blood 30 mmol/L (21-32); Calcium, Blood 8.8 mg/dL (8.5-10.1); Chloride, Blood 99 mmol/L (98-108); Creatinine, Blood 5.78 mg/dL (0.60-1.20); Glucose, Blood 85 mg/dL (70-99); Magnesium, Blood 2.3 mg/dL (1.6-2.4); Phosphorus, Blood 4.4 mg/dL (2.5-4.9); Potassium, Blood 3.8 mmol/L (3.5-5.5); Sodium, Blood 135 mmol/L (136-145)
--- NOTE | 2025-05-14 05:55 | NUR ---
SHIFT SUMMARY PATIENT REMAINS ALERT AND ORIENTED X4. SP02 97% ON RA, PATIENT WORE BIPAP FOR PARTS OF THE NIGHT WHILE SLEEPING. HR SR 70s, BP STABLE. INDEPENDENT IN ROOM. CALL LIGHT IN REACH
[2025-05-14 09:27] LABS: HBV CORE ANTIBODIES,TOTAL Positive (Negative)
[2025-05-14 09:34] LABS: ALPHA 1 GLOBULIN 0.34 g/dL (0.19-0.46); ALPHA 2 GLOBULIN 0.73 g/dL (0.48-1.05); BETA GLOBULIN 0.72 g/dL (0.48-1.10); GAMMA 0.88 g/dL (0.62-1.51); IMMUNOFIXATION REFLEX Not Done
--- NOTE | 2025-05-14 10:02 | NUR ---
UPDATE: RECEIVED PT VIA W/C AT APPROX 0940. BP 177/97, OTHER VSS. PT ON ROOM AIR, INDEP IN ROOM. PT SITTING UP IN CHAIR, CAll IN REACH.
--- NOTE | 2025-05-14 10:20 | NUR ---
ASSUMPTION OF CARE / TRANSFER ASSUMED CARE OF PATIENT AT 0700 AFTER BEDSIDE SHIFT REPORT FROM NIGHT NURSE. PATIENT AWAKE AO X4. O2 SATS >95% ON ROOM AIR. SBP 170-180. PROVIDER AWARE. MEDICATED PER EMAR. HR 70-80. VITALS SIGNS STABLE. PATIENT IS INDEPENDENT IN ROOM AND USES URINAL. STATUS CHANGE TO PCU PER PROVIDER. REPORT WAS GIVEN TO PCU NURSE AND PATIENT TRANSFERED.
[2025-05-14 10:30] LABS: HEPATITIS B SURFACE ANTIBODY 11.75 IU/L
--- NOTE | 2025-05-14 14:30 | NUR ---
UPDATE: PT WAS FOUND TO HAVE OOZING AT THE INSERTION SITE OF IJ. MARILEE FRASER CHANGED DRESSING, NO ACTIVE OOZING NOTED. DRESSING C/D/I. PT TOLERATED WELL.
--- NOTE | 2025-05-14 17:26 | NUR ---
SHIFT SUMMARY: PT A/O X4, ABLE TO MAKE NEEDS KNOWN. STRENGTH EQUAL BILATERALLY, INDEP IN ROOM. PT NSR 70-80s, DENIES CHEST PAIN/PRESSURE. ROOM AIR, SATS >95%. DENIES SOB. PT SITTING UP IN CHAIR FOR ENTIRE SHIFT. PT LAST BP WAS 181/125, MEDICATED PT FOR HYPERTENSION PER EMAR. OTHER VSS. RIGHT SIDE IJ FREQUENTLY OOZES, CHANGED DRESSING X2 THIS SHIFT. CALLED MD, PERMACATH CONSULT PUT IN FOR TOMORROW, MD STATES PT WILL DIALYZE AGAIN TOMORROW. PT ROOM AIR, SATS >95. DENIES SOB. MD ORDERED PT TO USE CPAP TONIGHT INSTEAD OF BIPAP, RT NOTIFIED. WILL NOTIFY ONCOMING RN. PT CURRENTLY SITTING UP IN CHAIR, CALL WITHIN REACH.
[2025-05-14 22:12] LABS: BASOPHILS ABSOLUTE AUTO 0.03 K/mm3 (0.00-0.23); BASOPHILS PERCENT AUTO 0 % (0-2); EOSINOPHILS ABSOLUTE AUTO 0.22 K/mm3 (0.00-0.68); EOSINOPHILS PERCENT AUTO 3 % (0-6); Hematocrit 29.3 % (37.0-53.0); Hemoglobin 9.5 g/dL (13.5-17.5); IMMATURE GRAN ABSOLUTE AUTO 0.03 K/mm3 (0.00-0.10); IMMATURE GRAN PERCENT AUTO 0 % (0-1); LYMPHOCYTES ABSOLUTE AUTO 0.73 K/mm3 (0.84-5.20); LYMPHOCYTES PERCENT AUTO 10 % (21-46); MONOCYTES ABSOLUTE AUTO 0.71 K/mm3 (0.16-1.47); MONOCYTES PERCENT AUTO 10 % (4-13); Mean Corpuscular HGB Conc 32.4 g/dL (31.5-36.5); Mean Corpuscular Volume 89 fL (80-100); NEUTROPHILS ABSOLUTE AUTO 5.50 K/mm3 (1.96-9.15); NEUTROPHILS PERCENT AUTO 76 % (41-73); NRBC ABSOLUTE 0.00 K/mm3 (0.00-0.02); NRBC Auto 0.0 /100 WBC (0.0-0.2); Platelet Count 141 K/mm3 (150-400); RDW Coefficient Variation 14.5 % (11.7-14.2); RDW Standard Deviation 46.5 fL (35.1-46.3)
[2025-05-14 23:26] LABS: Fibrinogen 406.0 mg/dL (170-430); Prothrombin Time Results 11.4 Sec (9.7-11.5)
[2025-05-15] VITALS (19 sets, daily range): BP systolic 152–1286; BP diastolic 10–810
[2025-05-15 04:04] LABS: BASOPHILS ABSOLUTE AUTO 0.05 K/mm3 (0.00-0.23); BASOPHILS PERCENT AUTO 1 % (0-2); EOSINOPHILS ABSOLUTE AUTO 0.27 K/mm3 (0.00-0.68); EOSINOPHILS PERCENT AUTO 4 % (0-6); Hematocrit 28.6 % (37.0-53.0); Hemoglobin 9.2 g/dL (13.5-17.5); IMMATURE GRAN ABSOLUTE AUTO 0.04 K/mm3 (0.00-0.10); IMMATURE GRAN PERCENT AUTO 1 % (0-1); LYMPHOCYTES ABSOLUTE AUTO 0.65 K/mm3 (0.84-5.20); LYMPHOCYTES PERCENT AUTO 10 % (21-46); MONOCYTES ABSOLUTE AUTO 0.58 K/mm3 (0.16-1.47); MONOCYTES PERCENT AUTO 9 % (4-13); Mean Corpuscular HGB Conc 32.2 g/dL (31.5-36.5); Mean Corpuscular Volume 89 fL (80-100); NEUTROPHILS ABSOLUTE AUTO 4.87 K/mm3 (1.96-9.15); NEUTROPHILS PERCENT AUTO 75 % (41-73); NRBC ABSOLUTE 0.00 K/mm3 (0.00-0.02); NRBC Auto 0.0 /100 WBC (0.0-0.2); Platelet Count 131 K/mm3 (150-400); RDW Coefficient Variation 14.5 % (11.7-14.2); RDW Standard Deviation 46.8 fL (35.1-46.3)
[2025-05-15 04:27] LABS: Albumin, Blood 2.7 g/dL (3.4-5.0); Anion Gap 9 mmol/L (3-11); Blood Urea Nitrogen 51 mg/dL (8-24); CO2, Blood 28 mmol/L (21-32); Calcium, Blood 8.2 mg/dL (8.5-10.1); Chloride, Blood 102 mmol/L (98-108); Creatinine, Blood 6.00 mg/dL (0.60-1.20); Glucose, Blood 82 mg/dL (70-99); Magnesium, Blood 2.2 mg/dL (1.6-2.4); Phosphorus, Blood 4.4 mg/dL (2.5-4.9); Potassium, Blood 3.8 mmol/L (3.5-5.5); Sodium, Blood 135 mmol/L (136-145)
--- NOTE | 2025-05-15 07:14 | NUR ---
Bedside shift report. Jose Carlos tank car cleaner to determine time of permacath placement.
--- NOTE | 2025-05-15 07:57 | NUR ---
SHIFT SUMMARY: PT IS A&OX4, ANXIOUS AND IRRITABLE, BUT COOPERATIVE WITH CARE. HYPERTENSIVE, SYS 180/ DYS 100'S, ON RA. SR 70'S, AROUND 0500 PT HAD A 15 BEAT RUN OF VTACH. ASYMPTOMATIC HE WAS SLEEPING IN THE RECLINER. PT FEELS MORE COMFORTABLE IN THE RECLINER, IT IS EASIER FOR HIM TO BREATHE. DENIES PAIN. THIS RN, AND SPED TEACHER IN ROOM PERFORMING MULTIPLE DRESSING CHANGES TO HIS IJ TRIALYSIS CATHETER. DRESSINGS WERE BECOMING SATURATED WITH BLOOD IN A MATTER OF MINUTES AFTER CHANGING. THIS RN CALLED THE RESIDENT TO BEDSIDE, STAT LABS ORDERED. AND FINALLY ANOTHER DRESSING CHANGE WAS COMPLETED WITH SPED TEACHER AND RESIDENT. NO VISIBLE BLOOD ON DRESSING WITH MORNING BED SIDE SHIFT REPORT. TOLERATING A HEART HEALTHY DIET, AND NPO AFTER MN FOR A PERMACATH PLACEMENT TODAY. PT IS UP AD IVONNE INDEPENDENTLY IN ROOM/BR. PT HAS BEEN VOIDING UNMEASURED AMOUNTS IN THE TOILET. PT ALSO STATES HE HAD TWO BM'S THIS SHIFT. PT STATES THAT HE HAS VERY LITTLE NOTICE OF TIME TO MAKE IT TO THE BR, AND HAS HAD SOME INCONTINENCE OF BOTH BOWEL AND BLADDER. PT FEELS VERY HUMILIATED BY THIS AND HASN'T BEEN INFORMING US OF WHEN THIS IS HAPPENING. THIS RN REMINDED HIM HOW IMPORTANT IT WAS THAT WE TRY OUR BEST TO MEASURE HIS OUTPUT. THIS RN ALSO OFFERED HIM A PULL-UP, HE REFUSED AND SAID IF HE HAS TO START WEARING DIAPERS, HE MIGHT WELL JUST . PT IN RECLINER THE ENTIRETY OF THIS SHIFT. CALL LIGHT AND PERSONAL BELONGINGS WITHIN REACH.
--- NOTE | 2025-05-15 12:03 | NUR ---
UPDATE: PT BACK FROM DIALYSIS AT APPROX 1155. BP 173/101, OTHER VSS. [facility] CALLED, PT LIKELY NOT GETTING PERMACATH PLACED TODAY. PT SITTING UP IN BED, EATING LUNCH.
--- NOTE | 2025-05-15 16:40 | NUR ---
SHIFT SUMMARY: PT A/O X4, ABLE TO MAKE NEEDS KNOWN. STRENGTH EQUAL BILATERALLY, INDEP IN ROOM. PT C/O FREQUENT URINE AND BOWEL URGENCY/INCONTINENCE THAT HE STATES IS "NORMAL FOR ME". PT ROOM AIR, SATS >95%. DENIES SOB, C/O INCREASED PHLEM PRODUCTION. PT NSR 70-80s, BP TRENDING DOWN, OTHER VSS. +[address] BILATERAL FEET. [address] Stratton AT [facility] THIS EVENING, DISCUSSED DIALYSIS TREATMENT OPTIONS AND MEDICATION MANAGEMENT FOR BLOOD PRESSURE WITH PT. NO DEFINITIVE TIME FOR PERMACATH PLACEMENT AT THIS TIME, AIMING FOR TOMORROW 05/16. PT HAD DIALYSIS TODAY, TOLERATED WELL. TRIALYSIS NO LONGER OOZING, NO SITE CHANGES NEEDED THIS SHIFT. PT SITTING UP IN CHAIR, CALL WITHIN REACH.
[2025-05-16] VITALS (13 sets, daily range): BP systolic 139–173; BP diastolic 80–136
[2025-05-16 03:43] LABS: BASOPHILS ABSOLUTE AUTO 0.04 K/mm3 (0.00-0.23); BASOPHILS PERCENT AUTO 1 % (0-2); EOSINOPHILS ABSOLUTE AUTO 0.33 K/mm3 (0.00-0.68); EOSINOPHILS PERCENT AUTO 5 % (0-6); Hematocrit 32.6 % (37.0-53.0); Hemoglobin 10.5 g/dL (13.5-17.5); IMMATURE GRAN ABSOLUTE AUTO 0.03 K/mm3 (0.00-0.10); IMMATURE GRAN PERCENT AUTO 0 % (0-1); LYMPHOCYTES ABSOLUTE AUTO 0.80 K/mm3 (0.84-5.20); LYMPHOCYTES PERCENT AUTO 11 % (21-46); MONOCYTES ABSOLUTE AUTO 0.60 K/mm3 (0.16-1.47); MONOCYTES PERCENT AUTO 8 % (4-13); Mean Corpuscular HGB Conc 32.2 g/dL (31.5-36.5); Mean Corpuscular Volume 90 fL (80-100); NEUTROPHILS ABSOLUTE AUTO 5.36 K/mm3 (1.96-9.15); NEUTROPHILS PERCENT AUTO 75 % (41-73); NRBC ABSOLUTE 0.00 K/mm3 (0.00-0.02); NRBC Auto 0.0 /100 WBC (0.0-0.2); Platelet Count 150 K/mm3 (150-400); RDW Coefficient Variation 14.5 % (11.7-14.2); RDW Standard Deviation 46.9 fL (35.1-46.3)
[2025-05-16 04:01] LABS: Albumin, Blood 3.0 g/dL (3.4-5.0); Anion Gap 8 mmol/L (3-11); Blood Urea Nitrogen 44 mg/dL (8-24); CO2, Blood 30 mmol/L (21-32); Calcium, Blood 8.4 mg/dL (8.5-10.1); Chloride, Blood 101 mmol/L (98-108); Creatinine, Blood 5.42 mg/dL (0.60-1.20); Glucose, Blood 87 mg/dL (70-99); Magnesium, Blood 2.3 mg/dL (1.6-2.4); Phosphorus, Blood 5.2 mg/dL (2.5-4.9); Potassium, Blood 4.2 mmol/L (3.5-5.5); Sodium, Blood 135 mmol/L (136-145)
--- NOTE | 2025-05-16 05:15 | NUR ---
ASSUMED CARE OF PT AT 1900. PT AWAKE, ALERT AND ORIENTED X4. PT INDEPENDENT IN ROOM AND USES CALL LIGHT APPROPRIATELY. PT HAS BEEN NPO SINCE MIDNIGHT FOR DIALYSIS CATH PLACEMENT TODAY. ALL VSS. NO BLEEDING NOTED TO IJ SITE. BED IN LOWEST POSITION AND CALL LIGHT WITHIN REACH.
--- NOTE | 2025-05-16 07:06 | NUR ---
Bedside shift report at this time. Pt is up sitting in straight backed chair. Expresses frustration about delay in permacath placement. States feeling lightheaded when he gets up, reasons that it is because he hasn't eaten yet today. Otherwise no complaints. Given a small amount of ice water at this time.
--- NOTE | 2025-05-16 07:47 | NUR ---
Call to heart center to determine schedule for permacath placement. Outpatients will be done first, so likely placement will be this afternoon. Pt cleared to eat breakfast this morning and NPO afterwards.
--- NOTE | 2025-05-16 11:02 | NUR ---
About an hour ago, pt was consented with Dr. Hernandez for permacath placement.
[2025-05-16] MEDS ORDERED: Heparin Sodium 1000 Units/ML 10ML MDV ONE (14:15)
[2025-05-16] MEDS ORDERED: NS 250 ML IV ONE (14:15)
[2025-05-16] MEDS ORDERED: FentaNYL Citrate 50 MCG/ML 2 ML Injection ONE (14:27)
[2025-05-16] MEDS ORDERED: NS 500 ML IV ONE (14:27)
[2025-05-16] MEDS ORDERED: Midazolam HCl 1MG / ML 2ML Vial ONE (14:27)
[2025-05-16] MEDS ORDERED: Heparin Sodium 10,000 Units/ML 1ML MDV ONE (14:43)
--- NOTE | 2025-05-16 15:18 | NUR ---
UPDATE: PT RETURNED VIA W/C FROM PERMACATH PROCEDURE. DRESSING C/D/I, SLIGHT SWELLING ABOVE SITE. PT TEMPORARY TRIALYSIS PORT LEFT IN PLACE TO TRIAL NEW PERMACATH INSERTION PRIOR TO REMOVAL. BP 156/98, OTHER VSS. PT SITTING UP IN CHAIR, CALL WITHIN REACH.
--- NOTE | 2025-05-16 17:30 | NUR ---
SHIFT SUMMARY: PT A/O X4 THROUGHOUT SHIFT, ABLE TO MAKE NEEDS KNOWN. STRENGTH EQUAL BILATERALLY, INDEP IN ROOM. ROOM AIR, SATS >95%. DENIES SOB. NSR 70s, DENIES CHEST PAIN/PRESSURE. LAST BP 154/97, TRENDING DOWN FROM PREVIOUS BP. OTHER VSS. PT WENT FOR A PERMACATH PLACEMENT TODAY, DRESSING REMAINS C/D/I. SWELLING NOTED ABOVE THE SITE. PT ENDORSING PAIN AT INCISION, MEDICATED PER EMAR. PT CURRENTLY SITTING UP IN CHAIR, CALL WITHIN REACH. WILL REPORT TO ONCOMING RN.
[2025-05-16] MEDS ORDERED: FentaNYL Citrate 50 MCG/ML 2 ML Injection IV PRN (18:00)
[2025-05-17] VITALS (18 sets, daily range): BP systolic 125–163; BP diastolic 81–117
[2025-05-17 03:50] LABS: BASOPHILS ABSOLUTE AUTO 0.04 K/mm3 (0.00-0.23); BASOPHILS PERCENT AUTO 1 % (0-2); EOSINOPHILS ABSOLUTE AUTO 0.39 K/mm3 (0.00-0.68); EOSINOPHILS PERCENT AUTO 6 % (0-6); Hematocrit 31.0 % (37.0-53.0); Hemoglobin 10.0 g/dL (13.5-17.5); IMMATURE GRAN ABSOLUTE AUTO 0.04 K/mm3 (0.00-0.10); IMMATURE GRAN PERCENT AUTO 1 % (0-1); LYMPHOCYTES ABSOLUTE AUTO 0.82 K/mm3 (0.84-5.20); LYMPHOCYTES PERCENT AUTO 13 % (21-46); MONOCYTES ABSOLUTE AUTO 0.58 K/mm3 (0.16-1.47); MONOCYTES PERCENT AUTO 9 % (4-13); Mean Corpuscular HGB Conc 32.3 g/dL (31.5-36.5); Mean Corpuscular Volume 91 fL (80-100); NEUTROPHILS ABSOLUTE AUTO 4.66 K/mm3 (1.96-9.15); NEUTROPHILS PERCENT AUTO 71 % (41-73); NRBC ABSOLUTE 0.00 K/mm3 (0.00-0.02); NRBC Auto 0.0 /100 WBC (0.0-0.2); Platelet Count 148 K/mm3 (150-400); RDW Coefficient Variation 14.6 % (11.7-14.2); RDW Standard Deviation 48.2 fL (35.1-46.3)
[2025-05-17 04:09] LABS: Albumin, Blood 2.9 g/dL (3.4-5.0); Anion Gap 7 mmol/L (3-11); Blood Urea Nitrogen 62 mg/dL (8-24); CO2, Blood 29 mmol/L (21-32); Calcium, Blood 8.3 mg/dL (8.5-10.1); Chloride, Blood 102 mmol/L (98-108); Creatinine, Blood 5.89 mg/dL (0.60-1.20); Glucose, Blood 99 mg/dL (70-99); Magnesium, Blood 2.3 mg/dL (1.6-2.4); Phosphorus, Blood 5.4 mg/dL (2.5-4.9); Potassium, Blood 4.2 mmol/L (3.5-5.5); Sodium, Blood 134 mmol/L (136-145)
--- NOTE | 2025-05-17 06:22 | NUR ---
SHIFT SUMMARY ASSUMED CARE OF PT AT APPROXIMATELY 1900. PT HAD PERMA CATH PLACED 05/16. TRIALYSIS CATH TO BE REMOVED AT DIALYSIS 05/17. PT AOX4. SLEPT IN RECLINER, STATED IT WAS MORE COMFORTABLE THAN THE BED. TRIALYSIS CATH DRESSING REINFORCED X2 THIS SHIFT. PT ABLE TO MAKE ALL NEEDS KNOWN. INDEPENDENT IN THE ROOM. CALL LIGHT WITHIN REACH AND PT CALLS APPROPRIATELY FOR ASSISTANCE WHEN NEEDED.
--- NOTE | 2025-05-17 08:30 | NUR ---
am note this rn assumed care at 0700. vital signs stable. tele sinus rhythm 70s. spo2 >90% on room air. patient is alert and oriented x4. neuro is intact. perrla. patient is able to make needs known and uses call light appropriately. patient is independent in the room with adls. patient reports pain in right chest wall, where permcath placed rated at a 7 and received pain med with morning medications. patient denies chest pain or shortness of breath. patient lung sounds clear throughout. see shift assessment for further detials. md ramirez in room and discussing plan for outpatient bed for dialysis and to received dialysis today. plan to pull the trialysis cath today after ensuring permacath works. patient agrees with plan
[2025-05-17] MEDS ORDERED: Vitamin B Cmplx/Vit C/Folic Ac 1 Tab PO SCH (09:00)
--- NOTE | 2025-05-17 14:00 | NUR ---
update md hill in to see patient and okay'd patient to be discharged once patient has out patient chair time
[2025-05-17] MEDS ORDERED: CARV6.25 PO (15:34)
[2025-05-17] MEDS ORDERED: Vitamin B-Comp1 EAC7 PO (15:34)
[2025-05-17] MEDS ORDERED: NIFE30ER PO (15:35)
[2025-05-17] MEDS ORDERED: SEVEC800 PO (15:35)
[2025-05-17] MEDS ORDERED: LOSA50 PO (15:35)
--- NOTE | 2025-05-17 16:08 | NUR ---
discharge note this rn went over discharge education, medications and the importance of following up with establishing a primary care doctor. patient verbalized understanding. this rn went over outpatient chair time for dialysis on tuesday at 1045 and discussed it with the patient and provided a sheet for the address per patient request. patient belongings gathered. awaiting for patient ride whom is supposed to be here at 1700. vital signs stable.
== END 2025-05-17 19:08 | disposition home or self-care (01) | DRG 871 ==
LOC: ER 09:37 → ICUE 12:46 → PCU 12:46 → ICUE 16:20 → PCU 05-14 09:44
PROVIDERS: Emergency Medicine; Hospitalist; ADMIT Student in an Organized Health Care Education/Training Program
PROC: 3E03329 Introduction of Other Anti-infective into Peripheral Vein, Percutaneous Approach (ICD-10-PCS; 2025-05-09)
PROC: 5A09357 Assistance with Respiratory Ventilation, Less than 24 Consecutive Hours, Continuous Positive Airway Pressure (ICD-10-PCS; 2025-05-10)
PROC: 5A1D70Z Performance of Urinary Filtration, Intermittent, Less than 6 Hours Per Day (ICD-10-PCS; principal; 2025-05-11)
PROC: 0JH60XZ Insertion of Tunneled Vascular Access Device into Chest Subcutaneous Tissue and Fascia, Open Approach (ICD-10-PCS; 2025-05-16)
PROC: 02HV33Z Insertion of Infusion Device into Superior Vena Cava, Percutaneous Approach (ICD-10-PCS; 2025-05-16)
DX: A41.9 Sepsis, unspecified organism (principal); J18.9 Pneumonia, unspecified organism; J96.01 Acute respiratory failure with hypoxia; N18.6 End stage renal disease; N17.9 Acute kidney failure, unspecified; I16.1 Hypertensive emergency; E87.20 Acidosis, unspecified; I12.0 Hypertensive chronic kidney disease with stage 5 chronic kidney disease or end stage renal disease; N40.0 Benign prostatic hyperplasia without lower urinary tract symptoms; I44.0 Atrioventricular block, first degree; I44.7 Left bundle-branch block, unspecified; F12.90 Cannabis use, unspecified, uncomplicated; G47.33 Obstructive sleep apnea (adult) (pediatric); F19.10 Other psychoactive substance abuse, uncomplicated; D63.1 Anemia in chronic kidney disease; E87.70 Fluid overload, unspecified; D50.9 Iron deficiency anemia, unspecified; Z79.899 Other long term (current) drug therapy
CPT/HCPCS: 36415; 36556; 71045; 76770; 76937; 80048; 80053; 80069; 81001; 82140; 82570; 82784; 82803; 83516; 83521; 83540; 83550; 83605; 83735; 83880; 84100; 84155; 84156; 84165; 84300; 84443; 84484; 85025; 85384; 85610; 85730; 86160; 86334; 86480; 86704; 87040; 87070; 87205; 87340; 87389; 87522; 93005; 93010; 93306; 93356; 93975; 94660; 94762; 96374; 99152; 99153; 99285-25; A9270; C1750; C1752; C1769; C1894; J0360; J0696; J1644; J1938; J2060; J2250; J2405; J2916; J3010; J3373; J7040; J7050